=== PATIENT | female | born 1985 | race Caucasian/White ===

== ENCOUNTER 2017-06-01 00:19 | Emergency (ER) | payer SELFPAY ==
[~2017-06-01] VITALS: Ht 149.9 cm; Wt 71.4 kg
[~2017-06-01 00:19] MED LIST: CLONIDINE HCL0.1 MG PO; MOTRIN600 MG PO; NOHOMEMEDS; TRAZODONE HCL50 MG PO
[2017-06-01] MEDS ORDERED: KEFLEX500 MG PO (02:00)
[2017-06-01] MEDS ORDERED: BACTRIM,SEPT1 TABLET PO (02:00)
[2017-06-01 02:59] VITALS: BP 104/80
== END 2017-06-01 03:00 | disposition home or self-care (01) ==
LOC: EME 00:19
PROC: 0H9BXZZ Drainage of Right Upper Arm Skin, External Approach (ICD-10-PCS; principal; 2017-06-01)
DX: L02.413 Cutaneous abscess of right upper limb (principal); F11.90 Opioid use, unspecified, uncomplicated; J45.909 Unspecified asthma, uncomplicated; F32.9 Major depressive disorder, single episode, unspecified; K21.9 Gastro-esophageal reflux disease without esophagitis; F17.200 Nicotine dependence, unspecified, uncomplicated; Z88.6 Allergy status to analgesic agent